=== PATIENT | female | born 1995 | race Caucasian/White ===

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

== ENCOUNTER 2017-04-12 16:08 | Emergency (ER) | payer MEDICAID, OTHER ==
[2017-04-12] MEDS ORDERED: ACETAMINOPHEN 325 MG TABLET PO ONE (16:41)
[2017-04-12] MEDS ORDERED: ONDANSETRON 4 MG TAB.RAPDIS PO ONE (16:42)
--- NOTE | 2017-04-12 16:44 | ER Document Report ---
ED Medical Screen (RME) - General Chief Complaint: Abdominal Pain Stated Complaint: VAGINAL BLEEDING Time Seen by Provider: 04/12/17 16:39 Mode of Arrival: Wheelchair Information source: Patient Notes: pt reports she is 5 weeks , some bleeding 2 nights ago, seen two nights ago at [facility]. last HCG 236 at [facility], US completed no fetus visualized. One hour ago started having really strong cramps on right side. Denies trauma, reports vomited, c/o nausea, vaginal bleeding, no clots but may be now because she is in pain. . miscarriage in december 2016. pt reports she was just sitting on bed watching tv when pain started. TRAVEL OUTSIDE OF THE [place] IN LAST 30 DAYS: No - Related Data Allergies/Adverse Reactions: No Known Allergies Allergy (Verified 04/12/17 16:09) Past Medical History Renal/ Medical History: Denies: Hx Peritoneal Dialysis Physical Exam - Vital signs Vitals: Temp Pulse Resp BP Pulse Ox 98.0 F 85 30 H 138/77 H 100 04/12/17 16:32 04/12/17 16:32 04/12/17 16:32 04/12/17 16:32 04/12/17 16:32 Course - Vital Signs Vital signs: Temp Pulse Resp BP Pulse Ox 98.0 F 85 30 H 138/77 H 100 04/12/17 16:32 04/12/17 16:32 04/12/17 16:32 04/12/17 16:32 04/12/17 16:32
[2017-04-12 17:26] LABS: ABSOLUTE BASOPHILS # (AUTO) 0.1 10^3/uL (0.0-0.2); ABSOLUTE EOSINOPHILS # (AUTO) 0.3 10^3/uL (0.0-0.6); ABSOLUTE LYMPHOCYTES (AUTO) 2.5 10^3/uL (0.5-4.7); BASOPHILS % (AUTO) 0.4 % (0-2); EOSINOPHILS % (AUTO) 2.1 % (0-6); HEMATOCRIT 39.6 % (36.0-47.0); HEMOGLOBIN 13.7 g/dL (12.0-15.5); LYMPHOCYTES % (AUTO) 15.7 % (13-45); MEAN CORPUSCULAR HEMOGLOBIN 30.5 pg (27.0-33.4); MEAN CORPUSCULAR HGB CONC 34.6 g/dL (32.0-36.0); MEAN CORPUSCULAR VOLUME 88 fl (80-97); MONOCYTES % (AUTO) 6.1 % (3-13); PLATELET COUNT 297 10^3/uL (150-450); RED CELL DISTRIBUTION WIDTH 12.1 % (11.5-14.0); SEGMENTED NEUTROPHILS % (AUTO) 75.7 % (42-78); TOTAL CELLS COUNTED % (AUTO) 100 %; WHITE BLOOD COUNT 15.8 10^3/uL (4.0-10.5)
--- NOTE | 2017-04-12 17:31 | ER Document Report ---
ED General - General Mode of Arrival: Wheelchair Information source: Patient TRAVEL OUTSIDE OF THE [place] IN LAST 30 DAYS: No <ISHAN BOLAND - Last Filed: 04/12/17 18:55> <LEONORA YOON - Last Filed: 04/13/17 00:18> - General Chief Complaint: Abdominal Pain Stated Complaint: VAGINAL BLEEDING Time Seen by Provider: 04/12/17 16:39 Notes: Patient is a 22 year old female reporting to be around 5 weeks presents to the emergency department complaining of abdominal pain and vaginal bleeding onset around 0300 this morning. Patient states the bleeding has stopped since this morning although she is still having right sided abdominal cramps which she describes has severe. Patient denies any recent trauma. Patient states she was seen at [facility] 2 days ago due to light vaginal spotting and an ultrasound was performed. Ultrasound showed no evidence of a fetus. Patients states she had no vaginal bleeding yesterday. Patient is . (ISHAN BOLAND) - Related Data Allergies/Adverse Reactions: No Known Allergies Allergy (Verified 04/12/17 16:09) Past Medical History - General Information source: Patient - Social History Smoking Status: Never Smoker Chew tobacco use (# tins/day): No Frequency of alcohol use: None Drug Abuse: None Family History: Reviewed & Not Pertinent Patient has suicidal ideation: No Patient has homicidal ideation: No <ISHAN BOLAND - Last Filed: 04/12/17 18:55> Review of Systems - Review of Systems Constitutional: No symptoms reported EENT: No symptoms reported Cardiovascular: No symptoms reported Respiratory: No symptoms reported Gastrointestinal: See HPI Genitourinary: No symptoms reported Female Genitourinary: See HPI Musculoskeletal: No symptoms reported Skin: No symptoms reported Hematologic/Lymphatic: No symptoms reported Neurological/Psychological: No symptoms reported -: Yes All other systems reviewed and negative <ISHAN BOLAND - Last Filed: 04/12/17 18:55> Physical Exam <ISHAN BOLAND - Last Filed: 04/12/17 18:55> <LEONORA YOON - Last Filed: 04/13/17 00:18> - Vital signs Vitals: Temp Pulse Resp BP Pulse Ox 98.0 F 85 30 H 138/77 H 100 04/12/17 16:32 04/12/17 16:32 04/12/17 16:32 04/12/17 16:32 04/12/17 16:32 - Notes Notes: GENERAL: Alert, interacts well. No acute distress. HEAD: Normocephalic, atraumatic. EYES: Pupils equal, round, and reactive to light. Extraocular movements intact. ENT: Oral mucosa moist, tongue midline. NECK: Full range of motion. Supple. Trachea midline. LUNGS: Clear to auscultation bilaterally, no wheezes, rales, or rhonchi. No respiratory distress. HEART: Regular rate and rhythm. No murmurs, gallops, or rubs. ABDOMEN: Soft, carol-umbilical tenderness to palpation off to the right. Non- distended. Bowel sounds present in all 4 quadrants. EXTREMITIES: Moves all 4 extremities spontaneously. NEUROLOGICAL: Alert and oriented x3. Normal speech. SKIN: Warm, dry, normal turgor. No rashes or lesions noted. BACK: No CVA tenderness. (ISHAN BOLAND) Patient was not tachypneic on my examination. No respiratory distress. (LEONORA YOON) Course - Laboratory Result Diagrams: 04/12/17 16:55 04/12/17 16:55 <ISHAN BOLAND - Last Filed: 04/12/17 18:55> - Laboratory Result Diagrams: 04/12/17 16:55 04/12/17 16:55 <LEONORA YOON - Last Filed: 04/13/17 00:18> - Re-evaluation Re-evalutation: 04/12/17 21:08 Ultrasound shows no visualized intrauterine , right adnexa has a small amount of free fluid adjacent to the right ovary, left adnexa is normal without any free fluid and normal ovarian vascular flow. There is a small amount of free fluid seen within the pelvic cul-de-sac. CBC shows leukocytosis of 15.8, CMP grossly unremarkable, quantitative beta-hCG is 405, hCG 2 days ago was 238 at [facility], blood type was found to be a positive at [facility]. She does not need RhoGam. Urinalysis shows 2 RBCs, 3 squamous epithelial cells. This could be contamination, unlikely to be a kidney stone as there is so few actual RBCs. I am somewhat concerned for the possibility of appendicitis although did distribution of the pain in her abdomen is not completely consistent it would be an atypical location as it is just to the right of the umbilicus rather than in the right lower quadrant. Discussed with patient that though she does have a leukocytosis her pain is not constant, she is not having any nausea or vomiting and she is not having any fevers. At this point I would like to try a trial of observation than proceeding straight to CAT scan. She is agreeable with this. Patient also understands she is at risk for an ectopic given the location of her pain in the low quantitative beta-hCG. Patient has follow-up appointment scheduled on Friday with [facility] at [facility]. Patient will return here for heavy vaginal bleeding, worsening pain or fevers. (LEONORA YOON) - Vital Signs Vital signs: Temp Pulse Resp BP Pulse Ox 98.5 F 69 30 H 118/79 98 04/12/17 21:20 04/12/17 21:20 04/12/17 16:32 04/12/17 21:20 04/12/17 21:20 - Laboratory Laboratory results interpreted by me: 04/12/17 04/12/17 04/12/17 16:55 16:55 17:08 WBC 15.8 H Absolute Neutrophils 12.0 H Chloride 108 H Calcium 10.4 H Beta HCG, Quant 405.65 H Urine Protein 30 H Urine Blood LARGE H Discharge <ISHAN BOLAND - Last Filed: 04/12/17 18:55> <LEONORA YOON - Last Filed: 04/13/17 00:18> - Discharge Clinical Impression: Vaginal bleeding affecting early , Elevated blood pressure affecting in first trimester, antepartum Condition: Stable Disposition: HOME, SELF-CARE Additional Instructions: Today you had some vaginal bleeding. Your ultrasound did not show an intrauterine or an ectopic (tubal) . Your urine had a small amount of blood but not enough that I can confirm a kidney stone. Your quantitative beta-hCG was 406. This is higher than it was 2 days ago and this is a good sign. You should be on complete vaginal rest until you are seen again on Friday. Do not put anything in your vagina until after the OB says it is okay. Please return to the emergency department for fever, worsening pain or heavy vaginal bleeding. I do have a small amount of concern for possible appendicitis so if you develop fevers or worsening pain please return to the emergency department. Scribe Attestation: 04/13/17 00:18 I personally performed the services described in the documentation, reviewed and edited the documentation which was dictated to the scribe in my presence, and it accurately records my words and actions. (LEONORA YOON) Scribe Documentation - Scribe Written by Alva:: Alva Peña, 04/12/2017 18:34 acting as scribe for :: Kareem <ISHAN BOLAND - Last Filed: 04/12/17 18:55>
[2017-04-12 17:47] LABS: ALANINE AMINOTRANSFERASE 42 U/L (9-52); ALBUMIN 4.1 g/dL (3.5-5.0); ALKALINE PHOSPHATASE 69 U/L (38-126); ANION GAP 8 (5-19); ASPARTATE AMINO TRANSFERASE 29 U/L (14-36); BILIRUBIN,DIRECT 0.3 mg/dL (0.0-0.4); BILIRUBIN,TOTAL 0.4 mg/dL (0.2-1.3); BLOOD UREA NITROGEN 11 mg/dL (7-20); CALCIUM 10.4 mg/dL (8.4-10.2); CARBON DIOXIDE 23 mmol/L (22-30); CHLORIDE 108 mmol/L (98-107); GLUCOSE 81 mg/dL (75-110); POTASSIUM 4.2 mmol/L (3.6-5.0); SODIUM 139.1 mmol/L (137-145)
[2017-04-12] MEDS ORDERED: HYDROXYZINE PAMOATE 25 MG CAPSULE PO ONE (18:22)
[2017-04-12 18:45] LABS: AMORPHOUS SEDIMENT,URINE TRACE /HPF; APPEARANCE,URINE CLOUDY; BILIRUBIN,URINE NEGATIVE (NEGATIVE); COLOR,URINE YELLOW; GLUCOSE, URINE NEGATIVE (NEGATIVE); KETONES,URINE NEGATIVE (NEGATIVE); LEUKOCYTE ESTERASE,URINE NEGATIVE (NEGATIVE); NITRITE,URINE NEGATIVE (NEGATIVE); PROTEIN,URINE 30 mg/dL (NEGATIVE); URINE SPECIFIC GRAVITY 1.011; UROBILINOGEN,URINE NEGATIVE mg/dL (<2.0)
--- NOTE | 2017-04-12 19:51 | RADIOLOGY REPORT (SQ) ---
EXAM DESCRIPTION: U/S OB TRANSVAGINAL W/O DOP COMPLETED DATE/TIME: 04/12/2017 7:30 pm REASON FOR STUDY: preg, bleeding abdominal pain COMPARISON: None. TECHNIQUE: Transvaginal static and realtime grayscale images acquired of the pelvis. Additional kourtney cted spectral and color Doppler images recorded. All images stored on PACs. BHC.65 LIMITATIONS: None. FINDINGS: UTERUS: No visualized intrauterine . RIGHT ADNEXA: Normal ovary with normal vascular flow. A small amount of free fluid is seen adjacent to the right ovary. No adnexal masses. LEFT ADNEXA: Normal ovary with normal vascular flow. No adnexal free fluid. No adnexal masses. FREE FLUID: A small amount of free fluid is seen within the pelvic cul-de-sac. OTHER: No other significant finding. IMPRESSION: NO VISUALIZED INTRA- OR EXTRAUTERINE . bHCG LEVEL TOO LOW TO EXPECT VISUALIZATION OF . ECTOPIC CANNOT BE EXCLUDED. FOLLOW-UP ULTRASOUND AND SERIAL BHCG LEVELS STRONGLY RECOMMENDED TO ACCURATELY ASSESS STATU S. TECHNICAL DOCUMENTATION: JOB ID: [id number] [employer]- All Rights Reserved
[2017-04-12 21:22] VITALS: BP 118/79
== END 2017-04-12 21:28 | disposition home or self-care (01) ==
LOC: ER 16:08
DX: O46.91 Antepartum hemorrhage, unspecified, first trimester (principal); R03.0 Elevated blood-pressure reading, without diagnosis of hypertension; R10.9 Unspecified abdominal pain; Z3A.01 Less than 8 weeks gestation of pregnancy
CPT/HCPCS: 99284; 36415; 84702; 85025; 80053; 81001; 76817; S0119